=== PATIENT | male | born 1945 | race Caucasian/White ===

== ENCOUNTER → 2017-01-23 01:30 | Emergency (ER) | payer MEDICARE ==
[~2017-01-23 01:30] MED LIST: ACETAMINOPHEN PO; ALBUTEROL17 GM INH; APRESOLINE PO; ASPIRINEC PO; CIPRO PO; FAMOTIDINE PO; IMDUR PO; KCL PO; LASIX PO; LEVAQUIN PO; LOPRESSOR PO; NORVASC PO; PROTONIX PO
== END | disposition expired ==
LOC: CED 01:30
DX: I50.9 Heart failure, unspecified (principal)
CPT/HCPCS: 92950; 99291; J0171